=== PATIENT | female | born 2000 | race African-American/Black ===

== ENCOUNTER 2019-06-15 13:01 | Emergency (ER) | payer OTHER, SELFPAY ==
[2019-06-15 13:03] VITALS: BP 122/83; PULSE 114; RESP 18; TEMP 37.9; O2SAT 95; BMI 22.0
[2019-06-15 13:25] VITALS: PULSE 103; RESP 18; O2SAT 99
--- NOTE | 2019-06-15 13:51 | ED.DCSUM_ITS ---
- ER Visit Summary Date of Service: 06/15/19 Chief Complaint: Left flank pain. 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 She is had transfusions in the past. No prior surgeries. She states since Wednesday night she has had onset of left flank pain. She denies any dysuria. No urgency or frequency or cloudy or bloody urine. She denies any vaginal bleeding or discharge her last menstrual period was May 25. She denies any nausea, vomiting or diarrhea. No cough or shortness of breath. No falls or trauma. States that she had a fever as high as 102. Physical Examination: Young female no distress. Vital signs stable temperature 100.2. Pulse ox 90% room air no signs of hypoxia. H EENT exam unremarkable. Moist his membranes. No erythema or exudate. Neck nontender no lymphadenopathy no meningismus. Lungs clear to auscultation bilaterally. Heart regular rhythm rate about 100 no murmur abdomen soft nontender normal bowel sounds no peritoneal signs. Both the right upper right lower quadrant unremarkable as is the left side of the abdomen. Extremities moves all 4. Neurovascular intact. No bruising. No rashes. No edema. Back she has mild tenderness of her left lowest rib cage area. There is no ecchymosis or bruising. No subcu air crepitance. Spine is nontender. Neurologic exam is normal with normal motor strength. No focal deficits. Test Results: CBC shows white count of 9. Chronic anemia with a hemoglobin of 7 which is her baseline. Hematocrit 21. Chemistries unremarkable normal creatinine and gap. UA consistent with UTI it may be early pyelonephritis positive nitrates greater than 100 white cells 1+ bacteria. A urine culture was sent. Repeat exam patient is doing well at 16:10 PM. She will be given dose of Bactrim. She was already treated with Tylenol. And she will be discharged home. Treatment Plan: [] Disposition: Discharge Impression: Left flank pain with fever secondary to UTI Rule out early pyelonephritis This note was generated with [employer] dictation software. It may contain incorrect words, spelling, and punctuation that were not noted in review of the chart prior to signing ED Disposition - Plan for ED Patient: Referrals: Tosha Causey, EMPERATRIZ-C [Primary Care Provider] -
[2019-06-15] MEDS: Acetaminophen 500 MG Tablet 1000 MG PO (13:57)
[2019-06-15 14:15] LABS: Mucous, Urine 0 SEEN /hpf (<or=2+)
[2019-06-15 14:18] LABS: Color, Urine Yellow (Yellow); Glucose, Dipstick Normal (Normal); Ketone-Dipstick Negative (Negative); Leukocyte Esterase-Dipstick 500 /ul (Negative); Nitrite-Dipstick Positive (Negative); Occult Blood-Urine 150 /ul (Negative); Protein-Dipstick 100 mg/dl (Negative); Urine Bilirubin Dipstick Negative (Negative); Urine Clarity Sl. Cloudy (Clear); Urine Urobilinogen 4 mg/dl (Normal)
[2019-06-15 14:25] LABS: White Blood Cells >100 SEEN /hpf (0-5)
[2019-06-15 14:28] LABS: Bacteria 1+ /hpf (None Seen); Red Blood Cells-Urine 0-5 SEEN /hpf (0-5); Squamous Epithelial Cells - UA 0-5 SEEN /hpf (5-10)
[2019-06-15 14:30] LABS: Yeast-Urine 1+ /hpf (None Seen)
[2019-06-15 14:41] LABS: Absolute Lymphocyte Count 1.85 X10^3/uL (0.83-4.51); Absolute Neutrophil Count 6.9 X10^3/uL (2.0-7.7); Basophil# 0.02 X10^3/uL; Basophil% 0.2 % (0-1); Eosinophil# 0.09 X10^3/uL; Hematocrit 21.8 % (37-47); Hemoglobin 7.7 g/dL (12.0-15.0); Lymphocyte # 1.85 X10^3/ul (4.0); Lymphocyte % 19.6 % (19-41); Mean Corp Hgb Conc 35.3 g/dL (32-36); Mean Corpuscular Hgb 29.3 pg (27.0-32.0); Mean Corpuscular Volume 82.9 fL (81-99); Mean Platelet Vol. 9.8 fl (6.2-12.0); Monocyte# 0.49 X10^3/uL; Monocyte% 5.2 % (0-10); NRBC Flagged by Analyzer 0 % (0-5); Neutrophil # 6.93 X10^3/uL (2.7-7.7); Neutrophil % 73.6 % (47-70); POSITIVE MORPHOLOGY YES; Platelet Count 258 K/mm3 (150-450); RBC Distribution Width CV 22.3 % (11.6-14.6); RBC Distribution Width SD 66.4 fl (35.1-43.9); Red Blood Count 2.63 M/mm3 (4.2-5.4); White Blood Count 9.4 K/mm3 (4.4-11.0)
[2019-06-15 14:42] LABS: Differential Indicated SCAN CRITERIA MET
[2019-06-15 14:53] LABS: Anion Gap 5 (5-15); BUN 8 mg/dL (7-18); BUN/Creat Ratio 15.7 RATIO (10-20); Calcium,Total 8.3 mg/dL (8.5-10.1); Chloride 107 mmol/L (98-107); Creatinine, Serum 0.51 mg/dL (0.55-1.02); EST Glomerular Filtration Rate 163 mL/min (>60); Est Glom Filt Rate - Afr Amer 198 mL/min (>60); Estimated Creatinine Clearance 140.33 ml/min; Glucose 84 mg/dL (74-106); Potassium 3.7 mmol/L (3.5-5.1); Sodium Level 141 mmol/L (136-145)
[2019-06-15 15:44] VITALS: BP 106/66; PULSE 92; RESP 18; O2SAT 100
--- NOTE | 2019-06-15 16:12 | ED.DEP ---
ED Disposition - Plan for ED Patient: Disposition: Home or Assisted Living Instructions: PYELONEPHRITIS, Female (Adult) Prescriptions: Sulfamethoxazole/Trimethoprim [Bactrim Ds Tablet] 1 ea PO BID #20 tab Prescription Printed Referrals: Tosha Causey, EMPERATRIZ-C [Primary Care Provider] - 3-5 Days if not improving Additional Instructions: Tylenol and Motrin for pain. Appears to be from a urinary tract infection. Bactrim 1 pill twice a day for 10 days. No Follow-up with your doctor if not improving return if worse. A urine culture was sent and that will help us to ensure that we are on the right antibiotic treatment for your infection.
[2019-06-15] MEDS: Smz/Tmp Ds Tablet 1 TABLET PO (16:19)
[2019-06-15 16:20] VITALS: BP 117/57; PULSE 89; RESP 18; O2SAT 100
== END 2019-06-15 16:31 | disposition home or self-care (01) ==
PROVIDERS: Emergency Provider Emergency Medicine; Family Provider Nurse Practitioner; PCP Nurse Practitioner
DX: N39.0 Urinary tract infection, site not specified (principal); R10.9 Unspecified abdominal pain; R50.9 Fever, unspecified; D64.9 Anemia, unspecified; Z72.0 Tobacco use
CPT/HCPCS: 80048; 81001; 85025; 87077; 87086; 87088; 87186; 99285; A4216

== ENCOUNTER 2020-01-14 15:31 | Emergency (ER) | payer OTHER, SELFPAY ==
[2020-01-14 15:32] VITALS: BP 118/87; PULSE 88; RESP 18; TEMP 36.5; O2SAT 99; BMI 21.4
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
--- NOTE | 2020-01-14 15:56 | ED.RN ---
[facility] CONTACT TO SPEAK WITH THE PT
[2020-01-14 16:00] LABS: Absolute Lymphocyte Count 2.85 X10^3/uL (0.83-4.51); Absolute Neutrophil Count 7.1 X10^3/uL (2.0-7.7); Basophil# 0.05 X10^3/uL; Basophil% 0.5 % (0-1); Eosinophil# 0.27 X10^3/uL; Eosinophils% 2.5 % (0-5); Hematocrit 29.2 % (37-47); Hemoglobin 10.3 g/dL (12.0-15.0); Lymphocyte # 2.85 X10^3/ul (4.0); Lymphocyte % 26.7 % (19-41); Mean Corp Hgb Conc 35.3 g/dL (32-36); Mean Corpuscular Hgb 29.3 pg (27.0-32.0); Mean Corpuscular Volume 83.2 fL (81-99); Mean Platelet Vol. 9.7 fl (6.2-12.0); Monocyte# 0.37 X10^3/uL; Monocyte% 3.5 % (0-10); NRBC Flagged by Analyzer 0 % (0-5); Neutrophil # 7.07 X10^3/uL (2.7-7.7); Neutrophil % 66.1 % (47-70); POSITIVE MORPHOLOGY YES; Platelet Count 335 K/mm3 (150-450); RBC Distribution Width CV 21.2 % (11.6-14.6); RBC Distribution Width SD 61.3 fl (35.1-43.9); Red Blood Count 3.51 M/mm3 (4.2-5.4); White Blood Count 10.7 K/mm3 (4.4-11.0)
[2020-01-14 16:01] LABS: Differential Indicated SCAN CRITERIA MET
--- NOTE | 2020-01-14 16:04 | ED.RN ---
MD Maldonado v.o. Suicide Precautions not needed at this time.
[2020-01-14 16:14] LABS: Amphetamine Urine VISTA NEGATIVE (<1000 ng/mL); Barbiturate Urine VISTA NEGATIVE (< 200 ng/mL); Benzodiazepine Urine VISTA NEGATIVE (< 200 ng/mL); Cocaine Urine VISTA NEGATIVE (< 300 ng/mL); Ecstacy Urine VISTA NEGATIVE (< 500 ng/mL); Methadone Urine VISTA NEGATIVE (< 300 ng/mL); PCP Urine VISTA NEGATIVE (< 25 ng/mL); THC Urine VISTA POSITIVE (< 50 ng/mL); Vista UDS pH Range 6
[2020-01-14 16:18] LABS: Anisocytosis 1+; Platelet Estimate ADEQUATE (ADEQ); Polychromasia RARE
[2020-01-14 16:21] LABS: Internal QC Validated? YES +Cl - CLEAR BKGD; Pregnancy, Serum, hCG Quali. NEGATIVE Negative
[2020-01-14 16:23] LABS: Alcohol, Blood (Medical)-Serum < 3.0 mg/dL
[2020-01-14 16:27] LABS: Anion Gap 6 (5-15); BUN 9 mg/dL (7-18); BUN/Creat Ratio 16.6 RATIO (10-20); Calcium,Total 8.7 mg/dL (8.5-10.1); Chloride 107 mmol/L (98-107); Creatinine, Serum 0.54 mg/dL (0.55-1.02); EST Glomerular Filtration Rate 152 mL/min (>60); Est Glom Filt Rate - Afr Amer 184 mL/min (>60); Glucose 91 mg/dL (74-106); Potassium 3.9 mmol/L (3.5-5.1); Sodium Level 141 mmol/L (136-145)
[2020-01-14 17:33] VITALS: RESP 15
[2020-01-14 18:30] VITALS: RESP 16
--- NOTE | 2020-01-14 18:43 | ED.RN ---
PER [facility], DECLINED AT [facility] AND [facility]
--- NOTE | 2020-01-14 18:44 | ED.RN ---
PER [facility] AT [facility], REFERRED TO [facility]
[2020-01-14 19:47] VITALS: BP 112/62; PULSE 65; RESP 15; O2SAT 97
[2020-01-14 20:48] VITALS: BP 112/62; PULSE 65; RESP 15; O2SAT 97
== END 2020-01-14 20:57 ==
PROVIDERS: Emergency Provider Emergency Medicine
DX: F32.9 Major depressive disorder, single episode, unspecified (principal); R45.851 Suicidal ideations; S51.812A Laceration without foreign body of left forearm, initial encounter; X83.8XXA Intentional self-harm by other specified means, initial encounter; Y93.9 Activity, unspecified; Y92.9 Unspecified place or not applicable; D58.0 Hereditary spherocytosis; F12.90 Cannabis use, unspecified, uncomplicated; Z72.0 Tobacco use
CPT/HCPCS: 80048; 80307; 80320; 84703; 85025; 99285; A4216; G0480

== ENCOUNTER 2020-02-08 14:52 | Emergency (ER) | payer OTHER, SELFPAY ==
[2020-02-08 14:54] VITALS: BP 128/92; PULSE 87; PULSE 91; RESP 17; RESP 18; TEMP 36.1; O2SAT 100; O2SAT 99; BMI 20.5
--- NOTE | 2020-02-08 15:38 | ED.DCSUM_ITS ---
- ER Visit Summary Date of Service: 02/08/20 Chief Complaint: Left foot pain History of Present Illness: The patient is a 19 F presenting with left foot pain. She states last night she stood up off the couch and had pain in the bottom of her left foot. She does not believe she stepped on anything. She did not fall. She took Naprosyn with some improvement. She states today she continues to have persistent pain to the bottom of her left foot. Denies other complaints. Physical Examination: Vitals are stable. Patient is afebrile. Alert no acute distress. HEENT exam is unremarkable. Neck is supple. Lungs are clear and equal bilaterally. Heart is regular rate and rhythm. Extremities mild tenderness plantar surface left foot with no puncture wound seen. Normal pulses Skin is warm and dry. No focal neurologic deficit. Remainder of exam is unremarkable. Emergency Department Course and Treatment: Left foot x-ray shows normal x-ray examination of the foot. Patient was given a postop shoe. She is advised to continue Naprosyn, ice, elevation. Advised to follow up with primary care physician. Advised return to ED for worsening complaints. Disposition: Discharge home Impression: Left foot pain This note was generated with [employer] dictation software. It may contain incorrect words, spelling, and punctuation that were not noted in review of the chart prior to signing ED Disposition - Plan for ED Patient: Referrals: Care Physician,No Primary [NON-STAFF] -
--- NOTE | 2020-02-08 15:54 | RAD_ITS ---
STUDY: X-RAY - LEFT FOOT CLINICAL: Female, 19 years old. LEFT FOOT PAIN - BALL OF FOOT AREA,WITH NO INJURY TECHNIQUE: 3 view(s) of the foot. COMPARISON: None. FINDINGS: Normal talus, calcaneus, and tarsal bones. Normal visualized subtalar, talonavicular, calcaneocuboid, tarsal and tarsometatarsal articulations. Normal metatarsi. Normal metatarsophalangeal joint of the great toe. Normal tibial and fibular sesamoid bones. Normal interphalangeal joint of the great toe. Normal phalanges of the great toe. Normal second through fifth metatarsophalangeal joints. Normal interphalangeal joints and phalanges of the lesser toes. The soft tissue structures are unremarkable. RAD/Foot min 3 Views IMPRESSION: Normal x-ray examination of the foot. Electronically Signed: Masood Morales MD at 16:14 EDT Tel , Service support ,
--- NOTE | 2020-02-08 16:36 | ED.DEP ---
ED Disposition - Plan for ED Patient: Prescriptions: Naproxen [Naprosyn] 500 mg PO BID PRN #20 tablet Referrals: Care Physician,No Primary [NON-STAFF] -
--- NOTE | 2020-02-08 16:47 | ED.DEP ---
ED Disposition - Plan for ED Patient: Instructions: ED Sprain Foot Prescriptions: Naproxen [Naprosyn] 500 mg PO BID PRN #20 tab Prescription Printed Referrals: Care Physician,No Primary [NON-STAFF] -
[2020-02-08 16:56] VITALS: BP 111/64; PULSE 71; RESP 16; O2SAT 98
--- NOTE | 2020-02-08 16:56 | ED.RN ---
THIS NURSE REVIEWED D/C INSTRUCTIONS WITH PT. PT VERBALIZED UNDERSTANDING OF INSTRUCTIONS. PT DENIES FURTHER NEEDS OR QUESTIONS AT THIS TIME.
== END 2020-02-08 17:13 | disposition home or self-care (01) ==
LOC: ED 16:10
PROVIDERS: Emergency Provider Emergency Medicine; PCP Internal Medicine
DX: M79.672 Pain in left foot (principal); Z72.0 Tobacco use
CPT/HCPCS: 73630; 99284

== ENCOUNTER 2020-03-12 18:25 | Emergency (ER) | payer OTHER, SELFPAY ==
[2020-03-12 18:26] VITALS: BP 119/83; PULSE 93; PULSE 96; RESP 16; TEMP 36.6; O2SAT 100; BMI 21.7
--- NOTE | 2020-03-12 18:36 | CT_ITS ---
STUDY: CT ABDOMEN AND PELVIS WITH CONTRAST REASON FOR EXAM: Female, 19 years old. Diffuse abdominal pain RADIATION DOSAGE (If Supplied By Facility): CTDIvol = ( 7.85 ) mGy, DLP = ( 270.15 ) mGycm TECHNIQUE: Transaxial images were obtained from the dome of the diaphragm to the symphysis pubis without oral contrast. 100 ml of Isovue-300 contrast was administered. Sagittal and coronal images were reconstructed. Individualized dose optimization techniques were used for this CT. COMPARISON: None. FINDINGS: The visualized lung bases are clear. The visualized portions of the heart and pericardium are within normal limits. There are no calcified gallstones present. The liver is within normal limits. There are no suspicious hepatic lesions. There is marked splenomegaly, measuring 18.6 x 13.3 x 9.9 cm. The pancreas is within normal limits. The adrenal glands are within normal limits. There are no renal or ureteral stones. There is no hydronephrosis. There are no focal renal lesions. Normal visualized stomach. There is no bowel obstruction or inflammation. There is a large amount of stool in the colon, consistent with constipation. The appendix is visualized and appears normal. The aorta is normal in caliber. There are bilateral adnexal cysts. There is a small amount of pelvic free fluid. There is no free air, fluid collection or lymphadenopathy. There are no destructive osseous lesions. CT/Abdomen/Pelvis W IV Cont ONLY IMPRESSION: Marked splenomegaly. Bilateral adnexal cysts with a small amount of pelvic free fluid. This is likely physiologic. No bowel obstruction or inflammation. Normal appendix. Constipation. Normal kidneys. No hydronephrosis. Electronically Signed: Ollie He, at 20:54 EDT Tel , Service support ,
--- NOTE | 2020-03-12 18:37 | ED.DCSUM_ITS ---
History of Present Illness Chief Complaint: General Illness Informant: Patient Onset: Weeks Context: Gradual Onset Timing: Intermittent Current Severity: Moderate Maximum Severity: Moderate Narrative: The patient is a 19-year-old female with medical history significant for anxiety and depression that presents to the emergency department with abdominal pain. Patient states for the past 5 to 7 days, she is been having diffuse abdominal pains that come at various times. She states she will get sharp stabbing pains throughout her abdomen. She states is worse in her lower pelvis. She states that it does cause pain when she is having intercourse. She did go to urgent care and states that they told her she did not have a urinary tract infection. She denies any bleeding or discharge. Last menstrual period was about 6 weeks ago. She denies fevers or chills. She has no history of prior abdominal surgery. She denies any history of ovarian cyst. Prior similar symptoms: No Recent Illness/Hospitalization: No Past Medical History - Allergies and Home Meds Allergies/Adverse Reactions: Allergies No Known Allergies Allergy (Verified 03/12/20 18:45) Primary Care Physician: Larry Ta MD [Primary Care Provider] - Prior records reviewed: Yes Past Medical History: - - Depression, anxiety Surgical History: noncontributory Smoking Status: Current every day smoker Review of Systems General: Denies: Chills, Fever, Sweats Eyes: Denies: Visual changes - bilaterally, Diplopia ENT: Denies: Rhinorrhea, Sore throat Cardiovascular: Denies: Chest pain, Palpitations Respiratory: Denies: Dyspnea, Cough, Dyspnea on exertion Gastrointestinal: Denies: Abdominal pain, Nausea, Vomiting, Diarrhea, Melena, Hematochezia Genitourinary: Denies: Dysuria, Hematuria, Frequency Musculoskeletal: Denies: Back pain, Extremity Pain Skin: Denies: Rash, Wounds Neurological: Denies: Headache, Weakness, Numbness Physical Exam Vital Signs/Narrative: Vital Signs Temp Pulse Resp BP Pulse Ox 03/12/20 18:26 97.8 F 96 16 119/83 H 100 Inital Vital Signs reviewed: Yes General: Well nourished, Well developed, No Acute Distress Head: Normocephalic, Atraumatic Eyes: Perrl, EOMI ENT: Moist mucous membranes, No rhinorrhea Neck: Supple, Nontender Cardiovascular: Regular rate, Regular rhythm, No murmurs Respiratory: No distress, CTA bilaterally, Chest nontender Abdomen: Soft, Nondistended, Normal bowel sounds, Tender. Negative for: Guarding, Rebound tenderness Back: Nontender, Normal Inspection Extremities: Nontender, No edema Skin: Normal color, No rash Neurological: Alert, Oriented x3, Cranial nerves II-XII grossly intact, Normal Strength, Normal Sensation Psychological: Normal affect, Normal Mood Diagnostic/Tx/Re-eval Clinical Impression(s) from Imaging Studies Abdomen/Pelvis CT 03/12/20 18:36 IMPRESSION: Marked splenomegaly. Bilateral adnexal cysts with a small amount of pelvic free fluid. This is likely physiologic. No bowel obstruction or inflammation. Normal appendix. Constipation. Normal kidneys. No hydronephrosis. Electronically Signed: Ollie Mccauleymauroela, at 20:54 EDT Tel , Service support , Abnormal Lab Results 03/12/20 03/12/20 03/12/20 18:59 18:59 19:30 WBC 7.8 RBC 2.92 L Hgb 8.9 L Hct 25.6 L MCV 87.7 MCH 30.5 MCHC 34.8 RDW Std Deviation 64.5 H RDW Coeff of Asael 21.8 H Plt Count 257 MPV 9.8 Immature Gran % (Auto) 0.300 Neut % (Auto) 58.7 Lymph % (Auto) 28.0 [place] % (Auto) 5.3 Eos % (Auto) 6.8 H Baso % (Auto) 0.9 Absolute Neuts (auto) 4.6 Absolute Lymphs (auto) 2.18 Nucleated RBC % 0 Differential Comment SCANNED Anisocytosis 1+ Sodium 137 Potassium 4.4 Chloride 105 Carbon Dioxide 26.0 Anion Gap 6 BUN 9 Creatinine 0.76 Estim Creat Clear Calc 89.10 Est GFR (MDRD) Af Amer 125 Est GFR (MDRD) Non-Af 103 BUN/Creatinine Ratio 11.9 Glucose 80 Calcium 8.4 L Total Bilirubin 2.10 H AST 12 L ALT 17 Alkaline Phosphatase 58 Total Protein 7.3 Albumin 4.2 Globulin 3.1 Albumin/Globulin Ratio 1.4 Urine Color Urine Clarity Urine pH Ur Specific [place] Urine Protein Urine Glucose (UA) Urine Ketones Urine Occult Blood Urine Nitrite Urine Bilirubin Urine Urobilinogen Ur Leukocyte Esterase Urine RBC Urine WBC Ur Squamous Epith Cells Urine Bacteria Urine Mucus Urine Test Negative 03/12/20 19:30 WBC RBC Hgb Hct MCV MCH MCHC RDW Std Deviation RDW Coeff of Asael Plt Count MPV Immature Gran % (Auto) Neut % (Auto) Lymph % (Auto) [place] % (Auto) Eos % (Auto) Baso % (Auto) Absolute Neuts (auto) Absolute Lymphs (auto) Nucleated RBC % Differential Comment Anisocytosis Sodium Potassium Chloride Carbon Dioxide Anion Gap BUN Creatinine Estim Creat Clear Calc Est GFR (MDRD) Af Amer Est GFR (MDRD) Non-Af BUN/Creatinine Ratio Glucose Calcium Total Bilirubin AST ALT Alkaline Phosphatase Total Protein Albumin Globulin Albumin/Globulin Ratio Urine Color Yellow Urine Clarity Sl. Cloudy Urine pH 6.0 Ur Specific [place] 1.010 Urine Protein Negative Urine Glucose (UA) Normal Urine Ketones Negative Urine Occult Blood 10 H Urine Nitrite Negative Urine Bilirubin Negative Urine Urobilinogen Normal Ur Leukocyte Esterase Negative Urine RBC 0-5 SEEN Urine WBC 0 SEEN Ur Squamous Epith Cells 0-5 SEEN Urine Bacteria 0 SEEN Urine Mucus 0 SEEN Urine Test - Medical Decision Making The patient presents with cramping lower abdominal pain. She has tenderness in bilateral quadrants without rebound or guarding. She does have history of blood dyscrasia which causes her to be anemic at times. Metabolic work-up was pursued. Screening labs do demonstrate mild anemia which is relatively unchanged. Urine does not show evidence of infection. Patient underwent CT of the abdomen pelvis which shows splenomegaly, consistent with her underlying blood disorder. There is significant stool burden and some mild free fluid in the pelvis consistent with recent cyst rupture. I do feel that the patient's presentation is multifactorial with her constipation and pelvic pain. I am going to treat her with anti-inflammatories and magnesium citrate. She will be given outpatient DEVELOPMENT EDUCATOR follow-up and will be discharged home. Impression 1. Ovarian cyst 2. Constipation ED Disposition - Plan for ED Patient: Instructions: ED Cyst Ovarian Prescriptions: Naproxen [Naprosyn] 500 mg PO BID PRN #20 tab Prescription Printed Referrals: Larry Ta MD [Primary Care Provider] -
[2020-03-12 19:12] LABS: Absolute Lymphocyte Count 2.18 X10^3/uL (0.83-4.51); Absolute Neutrophil Count 4.6 X10^3/uL (2.0-7.7); Basophil# 0.07 X10^3/uL; Basophil% 0.9 % (0-1); Eosinophil# 0.53 X10^3/uL; Eosinophils% 6.8 % (0-5); Hematocrit 25.6 % (37-47); Hemoglobin 8.9 g/dL (12.0-15.0); Lymphocyte # 2.18 X10^3/ul (4.0); Mean Corp Hgb Conc 34.8 g/dL (32-36); Mean Corpuscular Hgb 30.5 pg (27.0-32.0); Mean Corpuscular Volume 87.7 fL (81-99); Mean Platelet Vol. 9.8 fl (6.2-12.0); Monocyte# 0.41 X10^3/uL; Monocyte% 5.3 % (0-10); NRBC Flagged by Analyzer 0 % (0-5); Neutrophil # 4.58 X10^3/uL (2.7-7.7); Neutrophil % 58.7 % (47-70); POSITIVE MORPHOLOGY YES; Platelet Count 257 K/mm3 (150-450); RBC Distribution Width CV 21.8 % (11.6-14.6); RBC Distribution Width SD 64.5 fl (35.1-43.9); Red Blood Count 2.92 M/mm3 (4.2-5.4); White Blood Count 7.8 K/mm3 (4.4-11.0)
[2020-03-12] MEDS: 0.9% Normal Saline 1,000 ML 1000 ML IV (19:13)
[2020-03-12] MEDS: Ketorolac 30 MG/ML Syringe IV (19:13)
[2020-03-12] MEDS: Ondansetron 4 MG/2 ML Vial IV (19:13)
[2020-03-12 19:22] LABS: Differential Indicated SCAN CRITERIA MET
[2020-03-12 19:29] LABS: ALB/GLOB Ratio 1.4 RATIO (0.9-2.4); AST(SGOT) 12 U/L (15-37); Alanine Aminotransfer ALT/SGPT 17 U/L (13-56); Albumin, Serum 4.2 g/dL (3.2-5.0); Alkaline Phosphatase 58 U/L (45-117); Anion Gap 6 (5-15); BUN 9 mg/dL (7-18); BUN/Creat Ratio 11.9 RATIO (10-20); Calcium,Total 8.4 mg/dL (8.5-10.1); Chloride 105 mmol/L (98-107); Creatinine, Serum 0.76 mg/dL (0.55-1.02); EST Glomerular Filtration Rate 103 mL/min (>60); Est Glom Filt Rate - Afr Amer 125 mL/min (>60); Globulin 3.1 g/dL (2.2-4.2); Glucose 80 mg/dL (74-106); Potassium 4.4 mmol/L (3.5-5.1); Protein, Total 7.3 g/dL (6.4-8.2); Sodium Level 137 mmol/L (136-145)
[2020-03-12 19:40] LABS: Bacteria 0 SEEN /hpf (None Seen); Mucous, Urine 0 SEEN /hpf (<or=2+); White Blood Cells 0 SEEN /hpf (0-5)
[2020-03-12 20:05] LABS: Anisocytosis 1+; Differential Comment SCANNED
[2020-03-12 20:07] LABS: Color, Urine Yellow (Yellow); Glucose, Dipstick Normal (Normal); Ketone-Dipstick Negative (Negative); Leukocyte Esterase-Dipstick Negative /ul (Negative); Nitrite-Dipstick Negative (Negative); Occult Blood-Urine 10 /ul (Negative); Protein-Dipstick Negative (Negative); Urine Bilirubin Dipstick Negative (Negative); Urine Clarity Sl. Cloudy (Clear); Urine Urobilinogen Normal (Normal)
[2020-03-12 20:13] LABS: Internal QC Validated? YES +Cl - CLEAR BKGD; Pregnancy, Urine Negative Negative
[2020-03-12 20:34] LABS: Red Blood Cells-Urine 0-5 SEEN /hpf (0-5); Squamous Epithelial Cells - UA 0-5 SEEN /hpf (5-10)
[2020-03-12 21:40] VITALS: RESP 16
[2020-03-12] MEDS: Magnesium Citrate 300 ML PO (21:42)
== END 2020-03-12 21:43 | disposition home or self-care (01) ==
LOC: ED 19:38
PROVIDERS: Emergency Provider Emergency Medicine; PCP Internal Medicine
DX: N83.201 Unspecified ovarian cyst, right side (principal); N83.202 Unspecified ovarian cyst, left side; K59.00 Constipation, unspecified; R16.1 Splenomegaly, not elsewhere classified; D64.9 Anemia, unspecified; F32.9 Major depressive disorder, single episode, unspecified; F41.9 Anxiety disorder, unspecified; Z79.899 Other long term (current) drug therapy; F17.200 Nicotine dependence, unspecified, uncomplicated
CPT/HCPCS: 74177; 80053; 81001; 81025; 85025; 96361; 96374; 96375; 99283; J7030; Q9967; J2405

== ENCOUNTER 2020-09-03 22:34 | Emergency (ER) | payer OTHER, SELFPAY ==
[2020-09-03 22:35] VITALS: BP 122/85; PULSE 103; RESP 18; TEMP 36.2; O2SAT 100; BMI 20.7
--- NOTE | 2020-09-03 23:23 | ED.DCSUM_ITS ---
History of Present Illness Chief Complaint: Abd Pain Informant: Patient Narrative: Patient is a 19-year-old female who presents to the emergency department for dysuria, low back pain and suprapubic discomfort. She states that she was diagnosed with bacterial vaginosis a few weeks prior and put on antibiotic for this. She is still having some mild vaginal discharge. No foul smell to it. She denies any concern for STD. She is sexually active. She is not on control. She has had some chills but denies any fevers. She denies ever experiences before in the past. She has had UTIs before. No chest pain or shortness of breath. No change in bowel habits. Past Medical History - Allergies and Home Meds Allergies/Adverse Reactions: Allergies No Known Allergies Allergy (Verified 09/03/20 23:07) Primary Care Physician: Yandel Bailon MD [STAFF PHYSICIAN] - 2 Days Larry Ta MD [Primary Care Provider] - Prior records reviewed: Yes Past Medical History: - - Anemia Surgical History: noncontributory Smoking Status: Current every day smoker Review of Systems All systems negative except as indicated General: Reports: Chills. Denies: Fever, Sweats Eyes: Denies: Visual changes - bilaterally, Diplopia ENT: Denies: Rhinorrhea, Sore throat Cardiovascular: Denies: Chest pain, Palpitations Respiratory: Denies: Dyspnea, Cough, Dyspnea on exertion Gastrointestinal: Reports: Abdominal pain, Nausea. Denies: Vomiting, Diarrhea, Melena, Hematochezia Genitourinary: Reports: Dysuria. Denies: Hematuria, Frequency Musculoskeletal: Reports: Back pain. Denies: Extremity Pain Skin: Denies: Rash, Wounds Neurological: Denies: Headache, Weakness, Numbness Physical Exam Vital Signs/Narrative: Vital Signs Temp Pulse Resp BP Pulse Ox 09/03/20 22:35 97.2 F L 103 H 18 122/85 H 100 Inital Vital Signs reviewed: Yes General: Well nourished, Well developed, No Acute Distress Head: Normocephalic, Atraumatic Eyes: Perrl, EOMI ENT: Moist mucous membranes, No rhinorrhea Neck: Supple, Nontender Cardiovascular: Regular rate, Regular rhythm, No murmurs Respiratory: No distress, CTA bilaterally, Chest nontender Abdomen: Soft, Nontender, Nondistended, Normal bowel sounds Back: Nontender, Normal Inspection. Negative for: CVA tenderness Extremities: Nontender, No edema Skin: Normal color, No rash Neurological: Alert, Oriented x3, Cranial nerves II-XII grossly intact, Normal Strength, Normal Sensation Psychological: Normal affect, Normal Mood Diagnostic/Tx/Re-eval - Medical Decision Making Patient presents emerge department for dysuria, suprapubic abdominal discomfort and low back pain. She is also having some mild vaginal discharge. She denies any concern for STD. Will check urinalysis and urine test. I did offer to do a pelvic exam but she is hesitant on this. Urine had many bacteria but no white blood cells. This did have leukocyte esterase as well. Will treat with antibiotics. Again I did offer a pelvic exam to evaluate for yeast versus bacterial vaginosis infection. 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 Patient given first dose of antibiotic in the emergency department. She is sent home with a prescription. Warning signs and symptoms for which to return to the ED are reviewed with her. She understands and is agreeable this plan. She is discharged home in stable condition. All questions answered. ED Disposition - Plan for ED Patient: Disposition: Home or Assisted Living Diagnosis: UTI (urinary tract infection) Instructions: ED Urinary Tract Infections in Women Prescriptions: Cephalexin [Keflex] 500 mg PO Q12 #14 cap Transmission Status: Received by [id number] Referrals: Larry Ta MD [Primary Care Provider] - Yandel Bailon MD [STAFF PHYSICIAN] - 2 Days
[2020-09-03 23:32] LABS: Red Blood Cells-Urine 0 SEEN /hpf (0-5)
[2020-09-03 23:34] LABS: Color, Urine Yellow (Yellow); Glucose, Dipstick Normal (Normal); Ketone-Dipstick Negative (Negative); Leukocyte Esterase-Dipstick 25 /ul (Negative); Nitrite-Dipstick Negative (Negative); Occult Blood-Urine Negative /ul (Negative); Protein-Dipstick 15 mg/dl (Negative); Urine Bilirubin Dipstick Negative (Negative); Urine Clarity Clear (Clear); Urine Urobilinogen 8 mg/dl (Normal)
[2020-09-03 23:37] LABS: Internal QC Validated? YES +Cl - CLEAR BKGD; Pregnancy, Urine Negative Negative
[2020-09-03 23:45] LABS: Bacteria 2+ /hpf (None Seen); Mucous, Urine 2+ /hpf (<or=2+); White Blood Cells 0-5 SEEN /hpf (0-5)
[2020-09-03 23:46] LABS: Squamous Epithelial Cells - UA 5-10 SEEN /hpf (5-10)
[2020-09-04] MEDS: Cephalexin 250 MG Capsule 500 MG PO (00:17)
== END 2020-09-04 00:18 | disposition home or self-care (01) ==
PROVIDERS: Emergency Provider Emergency Medicine; PCP Internal Medicine
DX: N39.0 Urinary tract infection, site not specified (principal); Z87.440 Personal history of urinary (tract) infections; F17.200 Nicotine dependence, unspecified, uncomplicated
CPT/HCPCS: 81001; 81025; 87086; 87088; 99283

== ENCOUNTER 2021-07-21 23:43 | Emergency (ER) | payer BC, SELFPAY ==
[2021-07-21 23:44] VITALS: BP 132/77; PULSE 120; RESP 18; TEMP 36.2; O2SAT 100; BMI 22.8
[2021-07-22] MEDS: Amox/Clavulanate 875 MG Tablet PO (01:48)
[2021-07-22] MEDS: dexAMETHasone 10 MG/ML Vial PO.IVFORM (01:48)
[2021-07-22 01:57] VITALS: RESP 16
--- NOTE | 2021-07-22 02:43 | EX.ED.VIS.UR ---
HPI HPI - URI History of Present Illness Chief Complaint: Sore Throat Narrative Narrative: Patient presenting with sore throat and exudates. She states she was tested at the urgent care today but tested negative. Since that time her exudates have become worse. She states the pain is worse. She not having trouble swallowing or breathing. Has not had a fever. Mild headache. No meningeal signs. Patient has no cough or shortness of breath. No chest pain. ROS ROS ED Constitutional Constitutional ED: Denies chills, fever(s) or sweats Eyes Eyes: Denies blurry vision or diplopia ENT ENT ED: Reports sore throat; Denies ear pain Cardiovascular Cardiovascular: Denies chest pain or palpitations Respiratory/Chest Respiratory/Chest: Denies cough or dyspnea Gastrointestinal Gastrointestinal: Denies abdominal pain, nausea or vomiting Genitourinary Genitourinary ED: Denies dysuria or hematuria Musculoskeletal Musculoskeletal: Denies arthralgias or myalgias Integumentary Denies Abrasions or rash PFSH PFS Medical History Blood disorder Home Medications amoxicillin-pot clavulanate [Augmentin] 1 tab PO BID #19 tab 07/22/21 [Rx Last Taken Unknown] Allergy/AdvReac Type Severity Reaction Status Date / Time No Known Allergies Allergy Verified 09/03/20 23:07 Social History Smoking Status: Current every day smoker tobacco type: cigarettes EXAM Physical Exam Const Vital Signs: 07/21/21 23:44 07/22/21 01:57 Temperature 97.1 F L Temperature Source Temporal Pulse Rate 120 H Respiratory Rate 18 16 Blood Pressure 132/77 H Blood Pressure Mean 95 Pulse Ox 100 Oxygen Delivery Method Room Air Positive well nourished General Appearance ED: NAD; Negative for pallor HEENT normocephalic and atraumatic External Ear: external ears normal Throat: posterior oropharynx abnormal Positive for edema, erythema and exudates Eyes PERRL and EOMs intact bilaterally Neck no meningeal signs General: lymphadenopathy anterior cervical Resp normal respiratory effort and clear to auscultation bilaterally Cardio Rate: regular rate Rhythm: regular rhythm Neuro oriented x3 Sensorium / Orientation: alert and oriented to person Psych mental status grossly normal Skin General Skin Exam: Negative for jaundice or pallor MDM MDM MDM Narrative Medical decision making narrative: Patient presents with erythematous, edematous tonsils with exudates. She has anterior cervical lymphadenopathy. She has not had a known fever. Clinically she looks like strep pharyngitis. This does not look like it is viral. Patient states she had a strep swab done today which was negative and is pending culture. Given her presentation and the fact that it is worse now than it was earlier I will treat her with Augmentin and dexamethasone. Patient will be discharged home. She is given follow-up instructions. Return precautions were discussed. Impression: 1. Strep pharyngitis?presumed Discharge Plan Triage Chief Complaint: Sore Throat ED Provider: Efren Shelton Dx/Rx/DC Orders Instructions: ED Pharyngitis, Strep (Presumed) Prescriptions: New amoxicillin-pot clavulanate [Augmentin] 875-125 mg tablet 1 tab PO BID Qty: 19 RF: 0 Primary Care Provider: Care Physician,No Primary Referrals: NOT,DEFINED [NON-STAFF] - Disposition Disposition: Home, Self Care Discharge Date/Time: 07/22/21 01:57
== END 2021-07-22 01:57 | disposition home or self-care (01) ==
LOC: ED 07-22 01:45
PROVIDERS: Emergency Provider Student in an Organized Health Care Education/Training Program
DX: J02.0 Streptococcal pharyngitis (principal); F17.210 Nicotine dependence, cigarettes, uncomplicated
CPT/HCPCS: 99283

== ENCOUNTER 2021-08-01 15:14 | Emergency (ER) | payer BC, SELFPAY ==
[2021-08-01 15:15] VITALS: BP 124/94; PULSE 112; RESP 16; TEMP 36.8; O2SAT 100; BMI 21.5
--- NOTE | 2021-08-01 15:33 | RAD_ITS ---
EXAM: XR CHEST, 1 VIEW CLINICAL INDICATION: FEVER / COUGH TECHNIQUE: Frontal view of the chest. This report was created using [employer] report generation technology. COMPARISON: None. FINDINGS: LUNGS AND PLEURAL SPACES: Unremarkable. No consolidation or edema. No pneumothorax. No effusion. HEART: Unremarkable. Cardiac silhouette not enlarged. MEDIASTINUM: Central airways and mediastinal contour are unremarkable. BONES/JOINTS: Unremarkable. SOFT TISSUES: Unremarkable. RAD/Chest 1 View (Portable) IMPRESSION: No radiographic evidence of acute cardiopulmonary disease. Electronically Signed: Buzz Carpio MD at 16:48 EDT , Service support ,
[2021-08-01 16:11] VITALS: O2SAT 95
--- NOTE | 2021-08-01 16:29 | CT_ITS ---
EXAM: CT NECK WITH INTRAVENOUS CONTRAST CLINICAL INDICATION: pharyngitis Sore throat, nausea, fever, cough, neg covid TECHNIQUE: Helically acquired images were obtained of the neck with intravenous contrast. This CT exam was performed using one or more of the following dose reduction techniques: automated exposure control, adjustment of the mA and/or kV according to patient size, and/or use of iterative reconstruction technique. This report was created using [employer] report generation technology. CONTRAST: IV 100mL Isovue-[id number] COMPARISON: None. FINDINGS: NASOPHARYNX: Unremarkable. SUPRAHYOID NECK: There is bilateral tonsillitis. INFRAHYOID NECK: Unremarkable. The larynx, hypopharynx and supraglottis are unremarkable. SUBMANDIBULAR/PAROTID GLANDS: Unremarkable. Glands are normal in size. THYROID: Unremarkable. No enlarged or calcified nodules. BONES/JOINTS: No acute fracture. SOFT TISSUES: Unremarkable. VASCULATURE: No acute findings. LYMPH NODES: There is no evidence to suggest abscess formation. Diffuse adenopathy in the neck consistent for a reactive process. LUNG APICES: Unremarkable as visualized. CT/Soft Tissue Neck WITH Contrast IMPRESSION: There is bilateral tonsillitis. Electronically Signed: Buzz Carpio MD at 17:43 EDT , Service support ,
--- NOTE | 2021-08-01 16:30 | EX.ED.DYSGE1 ---
HPI History of Present Illness Chief Complaint: Sore Throat Informant: patient Onset/Context/Timing Onset: Weeks (3-week) Context: Gradual Onset Current Severity: Mild Maximum Severity: Moderate Narrative Narrative: Patient presents secondary to continued sore throat. She had a sore throat for the past 3 weeks with congestion. She now has mild cough and low-grade fever. She recently took a home Covid test that was negative. Patient was seen at urgent care and had a negative rapid strep initially. She was then seen here with worsened exudate and was given a course of Augmentin. She was given a single dose of dexamethasone in the emergency room. Patient states that she completed the course of antibiotics but has not noticed any change in her sore throat. [facility] Medical History Blood disorder Home Medications amoxicillin-pot clavulanate [Augmentin] 1 tab PO BID #19 tab 07/22/21 [Rx Last Taken Unknown] clindamycin HCl 300 mg PO TID 10 Days #60 cap 08/01/21 [Rx Last Taken Unknown] dexamethasone [Decadron] 6 mg PO DAILY #5 tab 08/01/21 [Rx Last Taken Unknown] Allergy/AdvReac Type Severity Reaction Status Date / Time No Known Allergies Allergy Verified 08/01/21 15:18 Social History Smoking Status: Current every day smoker tobacco type: cigarettes ROS ROS ED Constitutional Constitutional ED: Reports fever(s); Denies chills Eyes Eyes: Denies change in vision ENT ENT ED: Reports sore throat Cardiovascular Cardiovascular: Denies chest pain Respiratory/Chest Respiratory/Chest: Reports dyspnea; Denies cough Gastrointestinal Gastrointestinal: Reports nausea; Denies abdominal pain, diarrhea or vomiting Genitourinary Genitourinary ED: Denies dysuria Musculoskeletal Musculoskeletal: Denies back pain Integumentary Denies rash Neurologic Neurologic: Denies headache(s) or weakness Allergic/Immunologic Allergic/Immunologic ED: Denies urticaria EXAM Physical Exam Const Vital Signs: 08/01/21 15:15 08/01/21 16:11 08/01/21 16:40 Temperature 98.3 F Temperature Source Temporal Pulse Rate 112 H Respiratory Rate 16 Blood Pressure 124/94 H Blood Pressure Mean 104 Pulse Ox 100 95 Oxygen Delivery Method Room Air Room Air 08/01/21 18:07 Temperature Temperature Source Pulse Rate Respiratory Rate 16 Blood Pressure Blood Pressure Mean Pulse Ox Oxygen Delivery Method Positive well nourished and well developed General Appearance ED: well developed HEENT Reports normocephalic and head/scalp atraumatic HEENT Narrative: 3+ tonsils bilaterally. Uvula midline. No exudate noted at this time. Patient tolerating secretions well and speaks with a strong voice. Eyes PERRL and EOMs intact bilaterally Neck Neck Narrative: Bilateral anterior cervical lymphadenopathy. Chest Wall inspection of chest normal and palpation of chest normal Resp normal respiratory effort and clear to auscultation bilaterally Cardio regular rate and regular rhythm GI normal to inspection, nondistended, normoactive bowel sounds Palpation: soft Extremity normal to inspection Neuro oriented x3 and no sensory deficits noted Sensorium / Orientation: alert Motor Exam: strength 5/5 throughout Psych mental status grossly normal Skin no rashes or lesions noted MDM MDM MDM Narrative Medical decision making narrative: Lab work and CT scan of the neck is obtained. Covid swab ordered. Lab Data Labs: Laboratory Results - last 24 hr 08/01/21 08/01/21 08/01/21 16:18 16:18 16:18 WBC 24.2 H RBC 2.68 L Hgb 8.0 L Hct 23.0 L MCV 85.8 MCH 29.9 MCHC 34.8 RDW Std Deviation 64.8 H RDW Coeff of Asael 21.8 H Plt Count 332 MPV 9.5 Immature Gran % (Auto) 0.900 Neut % (Auto) 84.7 H Lymph % (Auto) 10.3 L Brown % (Auto) 3.3 Eos % (Auto) 0.5 Baso % (Auto) 0.3 Absolute Neuts (auto) 20.5 H Absolute Lymphs (auto) 2.49 Nucleated RBC % 0.1 Differential Comment SEE COMMENT Diff Path Review May foll Platelet Estimate ADEQUATE RBC Morphology N CHROM Hypochromasia RARE Anisocytosis 1+ Microcytosis RARE Sodium 141 Potassium 3.6 Chloride 108 H Carbon Dioxide 28.0 Anion Gap 5 BUN 9 Creatinine 0.56 Estim Creat Clear Calc 119.91 Est GFR (MDRD) Af Amer 174 Est GFR (MDRD) Non-Af 144 BUN/Creatinine Ratio 16.1 Glucose 98 Calcium 8.7 Serum , Qual NEGATIVE Rapid Covid test negative. Radiography Chest X-Ray - ED: 1 View, Read by ED Physician, Normal, Heart, Lungs and Mediastinum Diagnostic Testing: Clinical Impression(s) from Imaging Studies Chest X-Ray 08/01/21 15:33 IMPRESSION: No radiographic evidence of acute cardiopulmonary disease. Electronically Signed: Buzz Carpio MD at 16:48 EDT , Service support , Soft Tissue Neck CT 08/01/21 16:29 IMPRESSION: There is bilateral tonsillitis. Electronically Signed: Buzz Carpio MD at 17:43 EDT , Service support , Treatment and Re-Evaluation Comments:: Test results discussed with patient at bedside. White count significantly elevated at 24. Hemoglobin at 8. Patient has a chronic blood disorder and states her hemoglobin needs to stay above 6. She is happy with a hemoglobin of 8. CT scan reveals evidence of tonsillitis but no abscess of phlegmon or abscess. Patient be treated with a burst of Decadron as well as a course of clindamycin. Discharge Plan Triage Chief Complaint: Sore Throat ED Provider: Belen Trinidad Dx/Rx/DC Orders Clinical Impression: Acute tonsillitis Instructions: ED Tonsillitis Prescriptions: New clindamycin HCl 150 mg capsule 300 mg PO TID 10 Days Qty: 60 RF: 0 dexamethasone [Decadron] 6 mg tablet 6 mg PO DAILY Qty: 5 RF: 0 No Action amoxicillin-pot clavulanate [Augmentin] 875-125 mg tablet 1 tab PO BID Qty: 19 RF: 0 Primary Care Provider: Care Physician,No Primary Referrals: Isidro Deluca MD [STAFF PHYSICIAN] - 1 Week if not improving Care Physician,No Primary [Primary Care Provider] - Disposition Disposition: Home, Self Care
[2021-08-01 16:32] LABS: Absolute Lymphocyte Count 2.49 X10^3/uL (0.83-4.51); Absolute Neutrophil Count 20.5 X10^3/uL (2.0-7.7); Basophil# 0.07 X10^3/uL; Basophil% 0.3 % (0-1); Eosinophil# 0.11 X10^3/uL; Eosinophils% 0.5 % (0-5); Lymphocyte # 2.49 X10^3/ul (0.83-4.51); Lymphocyte % 10.3 % (19-41); Mean Corp Hgb Conc 34.8 g/dL (32-36); Mean Corpuscular Hgb 29.9 pg (27.0-32.0); Mean Corpuscular Volume 85.8 fL (81-99); Mean Platelet Vol. 9.5 fl (6.2-12.0); Monocyte% 3.3 % (0-10); NRBC Flagged by Analyzer 0.1 % (0-5); Neutrophil # 20.51 X10^3/uL (2.7-7.7); Neutrophil % 84.7 % (47-70); POSITIVE DIFFERENTIAL YES; POSITIVE MORPHOLOGY YES; Platelet Count 332 K/mm3 (150-450); RBC Distribution Width CV 21.8 % (11.6-14.6); RBC Distribution Width SD 64.8 fl (35.1-43.9); Red Blood Count 2.68 M/mm3 (4.2-5.4); White Blood Count 24.2 K/mm3 (4.4-11.0)
[2021-08-01 16:44] LABS: Internal QC Validated? YES +Cl - CLEAR BKGD; Pregnancy, Serum, hCG Quali. NEGATIVE Negative
[2021-08-01 16:45] LABS: Differential Indicated SCAN CRITERIA MET
[2021-08-01 16:46] LABS: Anion Gap 5 (5-15); BUN 9 mg/dL (7-18); BUN/Creat Ratio 16.1 RATIO (10-20); Calcium,Total 8.7 mg/dL (8.5-10.1); Chloride 108 mmol/L (98-107); Creatinine, Serum 0.56 mg/dL (0.55-1.02); EST Glomerular Filtration Rate 144 mL/min (>60); Est Glom Filt Rate - Afr Amer 174 mL/min (>60); Estimated Creatinine Clearance 119.91 ml/min; Glucose 98 mg/dL (74-106); Potassium 3.6 mmol/L (3.5-5.1); Sodium Level 141 mmol/L (136-145)
[2021-08-01 16:56] LABS: Anisocytosis 1+; Platelet Estimate ADEQUATE (ADEQ); Red Cell Morphology N CHROM NORMAL (NORM C&C)
[2021-08-01 16:57] LABS: Hypochromasia RARE; Microcytosis RARE
[2021-08-01] MEDS: Contrast Allergy Safety Check IV (17:32)
[2021-08-01 18:07] VITALS: RESP 16
[2021-08-01] MEDS: dexAMETHasone 4 MG Tablet 6 MG PO (19:18)
[2021-08-01] MEDS: Clindamycin HCl 150 MG Capsule 300 MG PO (19:18)
[2021-08-04 12:43] LABS: Pathologist Review Reviewed
== END 2021-08-01 19:20 | disposition home or self-care (01) ==
PROVIDERS: Emergency Provider Emergency Medicine
DX: J03.90 Acute tonsillitis, unspecified (principal); F17.210 Nicotine dependence, cigarettes, uncomplicated
CPT/HCPCS: 70491; 71045; 80048; 84703; 85025; 87426; 94760; 99283; A4216

== ENCOUNTER 2021-09-21 12:52 | Emergency (ER) | payer BC, SELFPAY ==
[2021-09-21 12:53] VITALS: BP 127/91; PULSE 92; RESP 16; TEMP 36.2; O2SAT 100; BMI 22.5
--- NOTE | 2021-09-21 13:02 | ED.RN ---
pt cpmpleted 2nd round of macrobid 2 days ago
--- NOTE | 2021-09-21 13:09 | EDS_ITS ---
HPI History of Present Illness Chief Complaint: Complaint Informant: patient Onset/Context/Timing Onset: Days (2) Context: Gradual Onset Timing: Continuous Quality: Sharp Location: Left flank Worsened by: Sitting and certain movements Relieved by: Laying on back Narrative Narrative: Patient presents with some dysuria and left flank pain that has been getting worse over the past 2 days. Patient states her pain is sharp. Patient states it is localized to the left flank area. Patient states it is worse with certain movements and sitting up. Patient states it is better whenever she lays back. Patient admits to some burning with urination. Patient states she c ompleted 2 separate courses of Macrobid for urinary tract infection. Patient states she finished her most recent course of Macrobid 3 days ago. [facility] Medical History Blood disorder Home Medications ciprofloxacin HCl 500 mg PO BID #14 tablet 09/21/21 [Rx Last Taken Unknown] Allergy/AdvReac Type Severity Reaction Status Date / Time No Known Allergies Allergy Verified 09/21/21 12:55 Social History Smoking Status: Current every day smoker tobacco type: cigarettes ROS ROS ED Constitutional Constitutional ED: Denies chills or fever(s) Eyes Eyes: Denies blurry vision or change in vision ENT ENT ED: Denies rhinorrhea or sore throat Cardiovascular Cardiovascular: Denies chest pain or palpitations Respiratory/Chest Respiratory/Chest: Denies cough or dyspnea Gastrointestinal Gastrointestinal: Reports nausea; Denies vomiting Genitourinary Genitourinary ED: Reports dysuria; Denies hematuria Musculoskeletal Musculoskeletal: Reports back pain and neck pain Integumentary Denies abscess or rash Neurologic Neurologic: Denies headache(s) or weakness Allergic/Immunologic Allergic/Immunologic ED: Denies mouth swelling or urticaria EXAM Physical Exam Const Vital Signs: 09/21/21 12:53 09/21/21 14:27 Temperature 97.2 F L Temperature Source Temporal Pulse Rate 92 72 Respiratory Rate 16 15 Blood Pressure 127/91 H 124/69 H Blood Pressure Mean 103 Pulse Ox 100 98 Oxygen Delivery Method Room Air Positive well nourished and well developed General Appearance ED: well developed HEENT Reports moist mucous membranes Neck supple and no JVD Resp normal respiratory effort and clear to auscultation bilaterally Cardio regular rate, regular rhythm and no murmurs GI normal to inspection, nondistended, normoactive bowel sounds and non-tender Palpation: soft Back/Spine no CVA tenderness Extremity normal to inspection General Extremety ED: Negative for edema or tenderness General Extremity: Negative for edema Neuro oriented x3, CN's II-XII intact bilaterally and no sensory deficits noted Sensorium / Orientation: alert Motor Exam: strength 5/5 throughout Psych mental status grossly normal Skin no rashes or lesions noted MDM MDM MDM Narrative Medical decision making narrative: Urinalysis was obtained. Leukocyte esterase was 500. There are 50-100 white blood cells. Urine hCG was negative. Patient was given a dose of Cipro here. Patient was given a prescription for Cipro. Ur ine culture was ordered. Patient was instructed to follow-up with her primary care physician in 3 to 5 days. Patient was instructed return if worse in any way. Patient understood and was agreeable with the plan. All questions were answered. Lab Data Labs: Laboratory Results - last 24 hr 09/21/21 13:20 Urine Color Yellow Urine Clarity Sl. Cloudy Urine pH 6.0 Ur Specific [place] 1.015 Urine Protein Negative Urine Glucose (UA) Normal Urine Ketones Negative Urine Occult Blood 150 H Urine Nitrite Negative Urine Bilirubin Negative Urine Urobilinogen 1 H Ur Leukocyte Esterase 500 H Urine RBC 0-5 SEEN Urine WBC 50-100 SEEN Ur Squamous Epith Cells 0-5 SEEN Urine Bacteria RARE Urine Mucus 0 SEEN Urine Test Negative Discharge Plan Triage Chief Complaint: Complaint ED Provider: Sumit Campos Dx/Rx/DC Orders Clinical Impression: Urinary tract infection Instructions: ED CYSTITIS Female Adult Prescriptions: New ciprofloxacin HCl [ciprofloxacin HCl] 500 MG tablet 500 mg PO BID Qty: 14 RF: 0 Primary Care Provider: Care Physician,No Primary Referrals: Marlin Storey MD [STAFF PHYSICIAN] - 3-5 Days Care Physician,No Primary [Primary Care Provider] - Disposition Disposition: Home, Self Care Discharge Date/Time: 09/21/21 14:27
[2021-09-21 13:25] LABS: Color, Urine Yellow (Yellow); Glucose, Dipstick Normal (Normal); Ketone-Dipstick Negative (Negative); Leukocyte Esterase-Dipstick 500 /ul (Negative); Mucous, Urine 0 SEEN /hpf (<or=2+); Nitrite-Dipstick Negative (Negative); Occult Blood-Urine 150 /ul (Negative); Protein-Dipstick Negative (Negative); Specific Gravity, Urine 1.015 (1.002-1.030); Urine Bilirubin Dipstick Negative (Negative); Urine Clarity Sl. Cloudy (Clear); Urine Urobilinogen 1 mg/dl (Normal)
[2021-09-21 13:31] LABS: Bacteria RARE /hpf (None Seen); Red Blood Cells-Urine 0-5 SEEN /hpf (0-5); Squamous Epithelial Cells - UA 0-5 SEEN /hpf (5-10); White Blood Cells 50-100 SEEN /hpf (0-5)
[2021-09-21 13:32] LABS: Internal QC Validated? YES +Cl - CLEAR BKGD; Pregnancy, Urine Negative Negative
[2021-09-21] MEDS: Ciprofloxacin 500 MG Tablet PO (14:26)
[2021-09-21 14:27] VITALS: BP 124/69; PULSE 72; RESP 15; O2SAT 98
== END 2021-09-21 14:27 | disposition home or self-care (01) ==
PROVIDERS: Emergency Provider Emergency Medicine
DX: N39.0 Urinary tract infection, site not specified (principal); F17.210 Nicotine dependence, cigarettes, uncomplicated
CPT/HCPCS: 81001; 81025; 87077; 87086; 87088; 87186; 99283

== ENCOUNTER 2021-10-20 15:26 | Outpatient (CLI) | payer BC, SELFPAY ==
[2021-10-20 15:28] LABS: Red Blood Cells-Urine 0 SEEN /hpf (0-5)
[2021-10-20 16:39] LABS: Color, Urine Amber (Yellow); Glucose, Dipstick Normal (Normal); Ketone-Dipstick 5 mg/dl (Negative); Leukocyte Esterase-Dipstick 25 /ul (Negative); Nitrite-Dipstick Negative (Negative); Occult Blood-Urine Negative /ul (Negative); Protein-Dipstick 15 mg/dl (Negative); Urine Clarity Sl. Cloudy (Clear); Urine Urobilinogen 12 mg/dl (Normal)
[2021-10-20 16:40] LABS: Urine Bilirubin Dipstick 3 mg/dL (Negative)
[2021-10-20 16:49] LABS: Bacteria RARE /hpf (None Seen); Mucous, Urine 1+ /hpf (<or=2+); Squamous Epithelial Cells - UA 5-10 SEEN /hpf (5-10); White Blood Cells 0-5 SEEN /hpf (0-5)
== END 2021-10-20 23:59 | disposition short-term general hospital (02) ==
LOC: BIMLAB 15:26
PROVIDERS: PCP Internal Medicine; Visit Provider Nurse Practitioner Family
DX: N39.0 Urinary tract infection, site not specified (principal)
CPT/HCPCS: 81001; 87086; 87088

== ENCOUNTER 2021-10-31 16:15 | Outpatient (CLI) | payer BC, SELFPAY ==
--- NOTE | 2021-10-31 16:19 | US_ITS ---
STUDY: RENAL ULTRASOUND - COMPLETE REASON FOR EXAM: Female, 21 years old. UTI recurrent TECHNIQUE: Ultrasound evaluation of the kidneys was performed with real-time and static espinosa-scale imaging. COMPARISON: None. FINDINGS: RIGHT KIDNEY: Normal location of the right kidney, which is normal in size. The right kidney measures 9.9 x 4.9 cm. There is a normal cortex of the right kidney. The renal cortex measures 1 cm. There is no right renal mass or cyst. There are no right renal calculi. There is no right hydronephrosis. DISTAL RIGHT URETER: There is non-visualization of the distal right ureter. There is no demonstrated right ureterovesical junction calculus. There is a visualized right ureteral jet. LEFT KIDNEY: Normal location of the left kidney, which is normal in size. The left kidney measures 11.1 x 3.9 cm. There is a normal cortex of the left kidney. The renal cortex measures 1.1 cm. There is no left renal mass or cyst. There are no left renal calculi. There is no left hydronephrosis. DISTAL LEFT URETER: There is non-visualization of the distal left ureter. There is no demonstrated left ureterovesical junction calculus. There is a visualized left ureteral jet. AORTA: There is obscuration of the abdominal aorta by overlying bowel gas I.V.C.: The IVC is obscured. BLADDER: The distended urinary bladder has a volume of 116 ml. There is a normal wall thickness of the distended urinary bladder. There is demonstrated to debris within the urinary bladder. There are no demonstrated bladder calculi. US/Kidney and Bladder IMPRESSION: Debris is noted within the urinary bladder. This can be seen in a urinary tract infection. Electronically Signed: Buzz Carpio MD at 19:06 EST ,
== END 2021-10-31 23:59 | disposition short-term general hospital (02) ==
LOC: US 16:17
PROVIDERS: PCP Internal Medicine; Referring Provider Urology; Visit Provider Urology
DX: N39.0 Urinary tract infection, site not specified (principal)
CPT/HCPCS: 76770

== ENCOUNTER → 2022-02-06 | Outpatient (CLI) | payer BC, SELFPAY ==
[2022-02-06 10:52] LABS: Bacteria 0 SEEN /hpf (None Seen); Mucous, Urine 0 SEEN /hpf (<or=2+); Red Blood Cells-Urine 0 SEEN /hpf (0-5); White Blood Cells 0 SEEN /hpf (0-5)
[2022-02-06 12:31] LABS: Color, Urine Yellow (Yellow); Glucose, Dipstick Normal (Normal); Ketone-Dipstick 5 mg/dl (Negative); Leukocyte Esterase-Dipstick 25 /ul (Negative); Nitrite-Dipstick Positive (Negative); Occult Blood-Urine 10 /ul (Negative); Protein-Dipstick 30 mg/dl (Negative); Specific Gravity, Urine 1.025 (1.002-1.030); Urine Clarity Clear (Clear); Urine Urobilinogen 1 mg/dl (Normal)
[2022-02-06 12:35] LABS: Urine Bilirubin Dipstick 1 mg/dL (Negative)
[2022-02-06 12:45] LABS: Squamous Epithelial Cells - UA 0-5 SEEN /hpf (5-10)
[2022-02-09 22:06] LABS: Chlamydia By Nucleic Acid AMP Negative (Negative)
[2022-02-10 16:45] LABS: Gonococcus By Nucleic Acid AMP Negative (Negative)
== END | disposition home or self-care (01) ==
LOC: LABSPEC 10:51
PROVIDERS: PCP Internal Medicine; Referring Provider Physician Assistant; Visit Provider Physician Assistant
DX: N39.0 Urinary tract infection, site not specified (principal); Z20.2 Contact with and (suspected) exposure to infections with a predominantly sexual mode of transmission
CPT/HCPCS: 81001; 87086; 87491; 87591

== ENCOUNTER 2023-06-16 21:04 | Emergency (ER) | payer BC, MEDICAID, SELFPAY ==
[2023-06-16 21:04] VITALS: BP 103/83; PULSE 84; RESP 16; TEMP 36.1; O2SAT 99; BMI 18.7
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
== END 2023-06-16 23:58 | disposition home or self-care (01) ==
PROVIDERS: Emergency Provider Emergency Medicine; PCP Internal Medicine; Visit Provider Emergency Medicine
DX: S16.1XXA Strain of muscle, fascia and tendon at neck level, initial encounter (principal); S20.20XA Contusion of thorax, unspecified, initial encounter; S70.01XA Contusion of right hip, initial encounter; V89.2XXA Person injured in unspecified motor-vehicle accident, traffic, initial encounter; F17.210 Nicotine dependence, cigarettes, uncomplicated; Y92.410 Unspecified street and highway as the place of occurrence of the external cause
CPT/HCPCS: 70450; 71045; 72040; 72170; 99282